=== PATIENT | female | born 1955 | race Caucasian/White ===

== ENCOUNTER → 2020-03-28 | Outpatient (CLI) | payer MEDICARE, OTHER ==
[2020-03-28 18:21] LABS: Calcium, Urine 14.3 mg/dL (< 17.5); Calcium, Urine Calculation 407.6 mg/24hrs (42.0-353.0)
[2020-03-28 18:25] LABS: Creatinine Urine 24.2 mg/dL (27.00-270.00)
== END | disposition home or self-care (01) ==
LOC: LAB 11:27 → LAB SHORT 11:27
PROVIDERS: Internal Medicine Endocrinology, Diabetes & Metabolism
DX: E83.52 Hypercalcemia (principal)
CPT/HCPCS: 81050; 82340; 82570

== ENCOUNTER 2020-10-06 07:11 | Day surgery (SDC) | payer MEDICARE, OTHER ==
[~2020-10-06] VITALS: Ht 160 cm; Wt 57.1 kg
[~2020-10-06 07:11] MED LIST: ERGO400 PO; GLUCOSAMINE-CH1 EAC7 PO; MACULAR HEALTH PO; MULTIPLE VITAM1 EACH PO; [UNRECOGNIZED DRUG - OTHER]
== END 2020-10-06 09:31 | disposition home or self-care (01) ==
LOC: ORSCSDS 07:11
PROVIDERS: Surgery
PROC: 0DJD8ZZ Inspection of Lower Intestinal Tract, Via Natural or Artificial Opening Endoscopic (ICD-10-PCS; principal; 2020-10-06 08:30)
DX: Z12.11 Encounter for screening for malignant neoplasm of colon (principal); K57.30 Diverticulosis of large intestine without perforation or abscess without bleeding; E78.5 Hyperlipidemia, unspecified; E66.01 Morbid (severe) obesity due to excess calories; Z68.36 Body mass index [BMI] 36.0-36.9, adult; Z79.899 Other long term (current) drug therapy
CPT/HCPCS: J2704; J7120

== ENCOUNTER → 2021-02-14 | Outpatient (CLI) | payer MEDICARE, OTHER ==
[2021-02-15 14:30] LABS: Calcium, Urine 12.5 mg/dL (< 17.5)
[2021-02-15 14:38] LABS: Creatinine Urine 19.9 mg/dL (27.00-270.00)
== END | disposition home or self-care (01) ==
LOC: LAB 16:04 → LAB SHORT 16:04
PROVIDERS: Internal Medicine Endocrinology, Diabetes & Metabolism
DX: E21.0 Primary hyperparathyroidism (principal)
CPT/HCPCS: 81050; 82340; 82570

== ENCOUNTER → 2021-05-18 | Outpatient (CLI) | payer MEDICARE, OTHER ==
[2021-05-21 14:03] LABS: Calcium, Urine 11.4 mg/dL (< 17.5); Calcium, Urine Calculation 216.6 mg/24hrs (42.0-353.0)
[2021-05-21 14:18] LABS: Creatinine Urine 59.7 mg/dL (27.00-270.00)
== END | disposition home or self-care (01) ==
LOC: LAB SHORT 06:30 → LAB 06:30
PROVIDERS: Internal Medicine Endocrinology, Diabetes & Metabolism
DX: R82.994 Hypercalciuria (principal)
CPT/HCPCS: 81050; 82340; 82570

== ENCOUNTER 2023-06-18 06:09 | Day surgery (SDC) | payer MEDICARE, OTHER ==
[~2023-06-18] VITALS: Ht 160 cm; Wt 55.7 kg
[2023-06-18] MEDS ORDERED: CHLO25B PO (06:54)
[2023-06-18] MEDS ORDERED: K-Dur20 MEQ PO (06:55)
[2023-06-18 10:33] VITALS: BP 123/89
--- NOTE | 2023-06-18 10:42 | NUR ---
06/18/23 1042 Bossman Sanchez IV REMOVED INTACT. SITE WNL.
== END 2023-06-18 10:37 | disposition home or self-care (01) ==
LOC: ORSCSDS 06:09
PROVIDERS: Otolaryngology
PROC: 0GBP0ZZ Excision of Left Inferior Parathyroid Gland, Open Approach (ICD-10-PCS; principal; 2023-06-18 07:30)
DX: E21.0 Primary hyperparathyroidism (principal); E78.5 Hyperlipidemia, unspecified
CPT/HCPCS: 83970; 88305; 88331; A9270; J1100; J2250; J2371; J2405; J2704; J3010; J7120